=== PATIENT | female | born 1985 | race American Indian/Alaskan Native ===

== ENCOUNTER 2017-06-13 04:48 | Emergency (ER) | payer OTHER ==
[2017-06-13 06:57] LABS: Basophils % (Auto) 0.3 % (0.0-1.8); Hematocrit 32.5 % (30.3-42.9); Hemoglobin 10.7 gm/dl (10.1-14.3); Mean Corpuscular HGB Conc 33 % (30-34); Mean Corpuscular Hemoglobin 29 pg (28-32); Mean Corpuscular Volume 88 fl (79-97); Platelet Count 284 K/mm3 (140-440); Red Cell Distribution Width 18.2 % (13.2-15.2); White Blood Count 6.6 K/mm3 (4.5-11.0)
[2017-06-13 07:05] LABS: Bilirubin,Urine NEG (Negative); Blood,Urine NEG (Negative); Ketones,Urine NEG (Negative); Leukocyte Esterase,Urine NEG (Negative); Mucus,Urine FEW /HPF; Nitrite,Urine NEG (Negative); Protein,Urine <15 mg/dL mg/dL (Negative); Urobilinogen,Urine < 2.0 mg/dL (<2.0)
[2017-06-13 07:15] LABS: Alanine Aminotransferase 80 units/L (7-56); Albumin 4.5 g/dL (3.9-5); Albumin/Globulin Ratio 1.5 %; Alkaline Phosphatase 106 units/L (35-129); Anion Gap 24 mmol/L; BUN/Creatinine Ratio 15.71; Blood Urea Nitrogen 11 mg/dL (7-17); Calcium 9.1 mg/dL (8.4-10.2); Carbon Dioxide 17 mmol/L (22-30); Chloride 103.6 mmol/L (98-107); Glucose 80 mg/dL (65-100); Lipase 16 units/L (13-60); Potassium 4.2 mmol/L (3.6-5.0); Sodium 140 mmol/L (137-145); Total Protein 7.6 g/dL (6.3-8.2)
[2017-06-13] MEDS ORDERED: ALUM-MAG HYDROX-SIMETH 200-200-20MG/5ML PO ONE (09:24)
[2017-06-13] MEDS ORDERED: LIDOCAINE VISCOUS 2% PO ONE (09:24)
--- NOTE | 2017-06-13 09:28 | Emergency Department Report ---
HPI - General Chief Complaint: Abdominal Pain Time Seen by Provider: 06/13/17 09:05 - HPI HPI: This is a 32 year-old female presents to the emergency department with a complaint of upper abdominal pain since this morning upon waking. The patient went out last night with her family and ate spicy [place] food, drink margaritas and then came home and went to bed. She denies any fever , dysuria, vaginal bleeding, vaginal discharge, nausea or vomiting. She has not taken anything for her symptoms prior to presentation for her actual symptoms but did take [id number] cold/flu medication last night for a chest cold she says she has been having. She admits to some recent heavy alcohol use because "I've been going through a lot." She otherwise only has a past medical history GERD. She does not currently have a primary care physician as she just moved here 1 month ago from [facility]. ED Past Medical Hx - Past Medical History Previous Medical History?: Yes Hx GERD: Yes - Surgical History Past Surgical History?: No - Social History Smoking Status: Current Every Day Smoker Substance Use Type: Alcohol - Medications Home Medications: Home Medications Medication Instructions Recorded Confirmed Last Taken Type Omeprazole Magnesium [PriLOSEC Otc] 20 mg PO QDAY #20 tablet. 06/13/17 Unknown Rx ED Review of Systems ROS: Stated complaint: ABD PAIN Other details as noted in HPI Comment: All other systems reviewed and negative Constitutional: denies: chills, fever Eyes: denies: eye pain, eye discharge, vision change ENT: denies: ear pain, throat pain Respiratory: denies: cough, shortness of breath, wheezing Cardiovascular: denies: chest pain, palpitations Gastrointestinal: abdominal pain. denies: vomiting Genitourinary: denies: urgency, dysuria, discharge Musculoskeletal: denies: back pain, joint swelling, arthralgia Skin: denies: rash, lesions Neurological: denies: headache, weakness, paresthesias Physical Exam - Physical Exam Vital Signs: Vital Signs 06/13/17 06/13/17 05:51 09:00 Temperature 98.9 F 98.4 F Pulse Rate 88 78 Respiratory 18 16 Rate Blood Pressure 103/60 Blood Pressure 113/63 [Left] O2 Sat by Pulse 100 100 Oximetry Physical Exam: GENERAL: The patient is well-developed well-nourished. HENT: Normocephalic. Atraumatic. Patient has moist mucous membranes. EYES: Extraocular motions are intact. Pupils equal reactive to light bilaterally. NECK: Supple. Trachea is midline. CHEST/LUNGS: Clear to auscultation. There is no respiratory distress noted. HEART/CARDIOVASCULAR: Regular. There is no tachycardia. There is no gallop rub or murmur. ABDOMEN: Abdomen is soft. There is some tenderness palpation to the epigastric region of the abdomen. No guarding or rebound tenderness. Patient has normal bowel sounds. There is no abdominal distention. SKIN: Skin is warm and dry. NEURO: The patient is awake, alert, and oriented. The patient is cooperative. The patient has no focal neurologic deficits. The patient has normal speech. MUSCULOSKELETAL: There is no tenderness or deformity. There is no limitation range of motion. There is no evidence of acute injury. ED Course Vital Signs 06/13/17 06/13/17 05:51 09:00 Temperature 98.9 F 98.4 F Pulse Rate 88 78 Respiratory 18 16 Rate Blood Pressure 103/60 Blood Pressure 113/63 [Left] O2 Sat by Pulse 100 100 Oximetry ED Medical Decision Making - Lab Data Result diagrams: 06/13/17 06:13 06/13/17 06:13 - Radiology Data Radiology results: report reviewed, image reviewed interpreted by me: Abdominal x-ray shows some nonspecific nonobstructive bowel gas. Upper abdominal ultrasound is a normal examination without any acute process seen. - Medical Decision Making 32-year-old female presents to the emergency department with upper abdominal pain since waking up this morning. She has a history of recent alcohol abuse including last night as well as a spicy [place] dinner just prior to lying down to sleep. She has a history of GERD. Labs are mostly unremarkable except for a AST of 280 ALT of 80. Abdominal ultrasound does not show any signs of hepatitis, cirrhosis, cholecystitis or cholelithiasis and is a normal examination. Abdominal x-ray shows nonspecific nonobstructive bowel gas. Patient was given a GI cocktail and upon reevaluation she is feeling improved. Vital signs stable throughout her ED course. Patient appears safe for discharge home at this time. She was started on Prilosec, given dietary restrictions for GERD and gastritis and given referrals with primary care and gastroenterology. She will return to the ER with any worsening of her symptoms or any acute distress. - Differential Diagnosis gastritis, GERD, cholecystitis, cholelithiasis, cirrhosis Critical Care Time: No Critical care attestation.: If time is entered above; I have spent that time in minutes in the direct care of this critically ill patient, excluding procedure time. ED Disposition Clinical Impression: History of alcohol abuse, Transaminitis GERD (gastroesophageal reflux disease) Qualifiers: Esophagitis presence: esophagitis presence not specified Qualified Code(s): K21.9 - Gastro-esophageal reflux disease without esophagitis Abdominal pain Qualifiers: Abdominal location: epigastric Qualified Code(s): R10.13 - Epigastric pain Disposition: TO HOME OR SELFCARE Is pt being admited?: No Condition: Stable Instructions: Diet for Ulcers and Gastritis (ED), Gastroesophageal Reflux Disease (ED), Abuse of Alcohol (ED), Abdominal Pain (ED) Additional Instructions: Please follow up with a primary care physician in the next few days. I have given a referral for a local abstract searcher, Dr. Singh, and case you need to follow-up regarding her abdominal pain or history of GERD. Try and stay away from any further alcohol use. I recommend you try and stay away from foods that are spicy, acidic, tomato-based, or any caffeinated products, to help with your acid reflux. Return to the emergency Department with any worsening of your symptoms or any acute distress. Prescriptions: Omeprazole Magnesium [PriLOSEC Otc] 20 mg PO QDAY #20 tablet. Referrals: GERMÁN COMER MD [Primary Care Provider] - 3-5 Days DANIA SINGH MD [Staff Physician] - 3-5 Days RAZA HERNANDEZ JR, MD [Staff Physician] - 3-5 Days [facility] [Outside] - 3-5 Days Time of Disposition: 11:08
--- NOTE | 2017-06-13 10:10 | Ultrasound Report ---
RIGHT UPPER QUADRANT ULTRASOUND: HISTORY: Upper abdominal pain. Technique: Transabdominal ultrasound imaging with Doppler interrogation. FINDINGS: The gallbladder is sonolucent with no evidence of stones, polyps or wall thickening. The common duct is normal in caliber. Images of the liver parenchyma, pancreas, right kidney and aorta are within normal limits. No perihepatic ascites. IMPRESSION: Unremarkable right upper quadrant ultrasound.
[2017-06-13 11:18] VITALS: BP 111/78
--- NOTE | 2017-06-13 11:23 | XRay Report ---
ABDOMEN, 2 views: History: Abdominal pain. There is no evidence of free air beneath the diaphragms. The gas pattern within the abdomen is unremarkable. There is no evidence of bowel dilatation, significant air-fluid levels, or pathologic calcifications. Organ shadows are unremarkable. IMPRESSION: Unremarkable abdomen.
== END 2017-06-13 11:18 | disposition home or self-care (01) ==
LOC: EDBD → ED 04:48
DX: K21.9 Gastro-esophageal reflux disease without esophagitis (principal); R74.0 Nonspecific elevation of levels of transaminase and lactic acid dehydrogenase [LDH]; F17.210 Nicotine dependence, cigarettes, uncomplicated
CPT/HCPCS: 36415; 74020; 76705; 80053; 81001; 81025; 83690; 85025; 99284